=== PATIENT | female | born 1970 | race Caucasian/White ===

== ENCOUNTER → 2019-12-01 08:26 | Outpatient (CLI) | payer BC, MEDICAID ==
[2019-12-01 10:24] LABS: BASOPHILS 0.3 % (0-2); EOSINOPHILS 3.1 % (0-7); HEMATOCRIT 41.7 % (36.0-48.0); IMMATURE GRANULOCYTES 0.2 % (0-5); LYMPHOCYTES 35.2 % (15-50); MCH 33.3 pg (26.0-34.0); MCHC 33.6 g/dL (31.0-37.0); MEAN PLATELET VOLUME 9.1 fL (7.4-10.4); MONOCYTES 5.2 % (2-11); PLATELET COUNT 211 10x3/uL (130-400); RBC 4.21 10x6/uL (4.00-5.40); RDW 12.9 % (11.5-14.5); WBC 5.8 10x3/uL (4.8-10.8)
[2019-12-02 08:12] LABS: IMMUNOGLOBULIN A 153 mg/dL (87-352); IMMUNOGLOBULIN G 977 mg/dL (586-1602); IMMUNOGLOBULIN M 130 mg/dL (26-217)
== END | disposition home or self-care (01) ==
LOC: D.RT 08:26
PROVIDERS: ATTEND Internal Medicine Pulmonary Disease
DX: J45.909 Unspecified asthma, uncomplicated (principal); K21.9 Gastro-esophageal reflux disease without esophagitis; Z87.09 Personal history of other diseases of the respiratory system; T78.49XA Other allergy, initial encounter

== ENCOUNTER → 2020-09-19 10:55 | Outpatient (CLI) | payer BC, MEDICAID | END | disposition home or self-care (01) | LOC: D.RT 10:55 | DX: J45.909 Unspecified asthma, uncomplicated (principal) ==